=== PATIENT | female | born 1950 | race Caucasian/White ===

== ENCOUNTER → 2020-08-28 | Outpatient (CLI) | payer OTHER ==
[~2020-08-28] MED LIST: ATEN25 PO; CARB200ER; CODACE30 PO; GABA300 PO; Methimazole5 MG PO; PHENO30 PO; PRED20 PO
== END ==
LOC: LAB SHORT 11:28 → LAB EV 11:28
DX: N39.0 Urinary tract infection, site not specified (principal)
CPT/HCPCS: 87077; 87086; 87186

== ENCOUNTER → 2020-12-27 | Outpatient (CLI) | payer OTHER | END | disposition home or self-care (01) | LOC: LAB SHORT 16:15 | DX: R30.9 Painful micturition, unspecified (principal) | CPT/HCPCS: 87086 ==

== ENCOUNTER → 2024-11-29 | Outpatient (CLI) | payer OTHER | LOC: LAB SHORT 13:10 → LAB 13:10 | DX: N39.0 Urinary tract infection, site not specified (principal) | CPT/HCPCS: 87077; 87086; 87186 ==